=== PATIENT | female | born 1995 | race Caucasian/White ===

== ENCOUNTER 2017-06-27 10:29 | Emergency (ER) | payer OTHER ==
[2017-06-27] MEDS ORDERED: SODIUM CHLORIDE 0.9% 1,000 ML IV STA (11:12)
--- NOTE | 2017-06-27 11:14 | ED ---
General Adult HPI - General Chief complaint: Abdominal Pain Stated complaint: lower right abdominal pain Time Seen by Provider: 06/27/17 11:09 Source: patient, RN notes reviewed Mode of arrival: ambulatory Limitations: no limitations - History of Present Illness Initial comments: Patient's a 22-year-old female who presents emergency room today with chief complaint of right lower quadrant pain that began approximately 2 and half hours ago. Patient does admit to a sharp type pain located right lower quadrant. Currently rates a 4/10. Patient does make to some symptoms of nausea vomiting occurred earlier. States nausea has improved. His pain seems to wrap around to the back. Patient denies any other complaints or symptoms. Patient states does not want any pain medication at this time. Patient denies any recent fever, chills, shortness of breath, chest pain, numbness or tingling , dysuria or hematuria, constipation or diarrhea, headaches or visual changes, or any other complaints. - Related Data Home Medications Medication Instructions Recorded Confirmed Acetaminophen [Tylenol 8 Hour] 650 mg PO Q8H PRN 06/27/17 06/27/17 Allergies Allergy/AdvReac Type Severity Reaction Status Date / Time latex Allergy Intermediate Rash/Hives Verified 06/27/17 10:52 Review of Systems ROS Statement: Those systems with pertinent positive or pertinent negative responses have been documented in the HPI. ROS Other: All systems not noted in ROS Statement are negative. Past Medical History Past Medical History: No Reported History History of Any Multi-Drug Resistant Organisms: None Reported Past Surgical History: No Surgical Hx Reported Additional Past Surgical History / Comment(s): biopsies Past Anesthesia/Blood Transfusion Reactions: No Reported Reaction Past Psychological History: No Psychological Hx Reported Smoking Status: Current every day smoker Past Alcohol Use History: None Reported Past Drug Use History: None Reported - Past Family History Father Family Medical History: Chest Pain / Angina, Coronary Artery Disease (CAD), Myocardial Infarction ([place]) Brother(s) Family Medical History: Hypertension Additional Family Medical History / Comment(s): chron's General Exam - General Exam Comments Initial Comments: General: The patient is awake and alert, in no distress, and does not appear acutely ill. Eye: Pupils are equal, round and reactive to light, extra-ocular movements are intact. No nystagmus. There is normal conjunctiva bilaterally. No signs of icterus. Ears, nose, mouth and throat: There are moist mucous membranes and no oral lesions. Neck: The neck is supple, there is no tenderness or JVD. Cardiovascular: There is a regular rate and rhythm. No murmur, rub or gallop is appreciated. Respiratory: Lungs are clear to auscultation, respirations are non-labored, breath sounds are equal. No wheezes, stridor, rales, or rhonchi. Gastrointestinal: Normal appearance abdomen. Normal bowel sounds. Abdomen soft on palpation per patient does have tenderness right lower quadrant. No rebound tenderness. No guarding. No CVA tenderness. Musculoskeletal: Normal ROM, no tenderness. Strength 5/5. Sensation intact. Pulses equal bilaterally 2+. Neurological: A&O x 3. CN II-XII intact, There are no obvious motor or sensory deficits. Coordination appears grossly intact. Speech is normal. Skin: Skin is warm and dry and no rashes or lesions are noted. Psychiatric: Cooperative, appropriate mood & affect, normal judgment. Limitations: no limitations Course Vital Signs 06/27/17 06/27/17 10:44 12:40 Temperature 98.8 F Pulse Rate 80 83 Respiratory 18 16 Rate Blood Pressure 112/60 122/63 O2 Sat by Pulse 100 99 Oximetry Medical Decision Making - Medical Decision Making Case discussed in detail with attending physician Dr. Goodrich. Patient reexamined at this time shows no signs of distress resting comfortably. Patient' s CT reviewed and shows no evidence of appendicitis. Does show a right renal stone 4 mm. Results were discussed with patient. At this time she is pain free. Denies any symptoms. Was discussed about the possibility of a passed stone as well as 13 red cells in her urine. She does admit to family history of kidney stones well. She is advised faulted family doctor. Return here to the emergency room for any symptoms return or increase worsen. She states understanding and is in agreement. - Lab Data Result diagrams: 06/27/17 11:25 06/27/17 11:25 Lab Results 06/27/17 06/27/17 06/27/17 Range/Units 11:25 11:25 11:25 WBC 6.0 (3.8-10.6) k/uL RBC 4.53 (3.80-5.40) m/uL Hgb 14.1 (11.4-16.0) gm/dL Hct 42.3 (34.0-46.0) % MCV 93.5 (80.0-100.0) fL MCH 31.1 (25.0-35.0) pg MCHC 33.3 (31.0-37.0) g/dL RDW 14.0 (11.5-15.5) % Plt Count 164 (150-450) k/uL Neutrophils % 80 % Lymphocytes % 15 % Monocytes % 3 % Eosinophils % 1 % Basophils % 0 % Neutrophils # 4.8 (1.3-7.7) k/uL Lymphocytes # 0.9 L (1.0-4.8) k/uL Monocytes # 0.2 (0-1.0) k/uL Eosinophils # 0.1 (0-0.7) k/uL Basophils # 0.0 (0-0.2) k/uL Sodium 141 (137-145) mmol/L Potassium 4.3 (3.5-5.1) mmol/L Chloride 108 H (98-107) mmol/L Carbon Dioxide 24 (22-30) mmol/L Anion Gap 9 mmol/L BUN 10 (7-17) mg/dL Creatinine 0.93 (0.52-1.04) mg/dL Est GFR (MDRD) Af Amer >60 (>60 ml/min/1.73 sqM) Est GFR (MDRD) Non-Af >60 (>60 ml/min/1.73 sqM) Glucose 91 (74-99) mg/dL Calcium 9.6 (8.4-10.2) mg/dL Total Bilirubin 0.3 (0.2-1.3) mg/dL AST 17 (14-36) U/L ALT 25 (9-52) U/L Alkaline Phosphatase 61 (38-126) U/L Total Protein 6.9 (6.3-8.2) g/dL Albumin 4.4 (3.5-5.0) g/dL Amylase 32 (30-110) U/L Lipase 52 (23-300) U/L Urine Color Yellow Urine Appearance Cloudy H (Clear) Urine pH 7.0 (5.0-8.0) Ur Specific [place] 1.019 (1.001-1.035) Urine Protein Trace H (Negative) Urine Glucose (UA) Negative (Negative) Urine Ketones Negative (Negative) Urine Blood Trace H (Negative) Urine Nitrite Negative (Negative) Urine Bilirubin Negative (Negative) Urine Urobilinogen <2.0 (<2.0) mg/dL Ur Leukocyte Esterase Negative (Negative) Urine RBC 13 H (0-5) /hpf Urine WBC <1 (0-5) /hpf Ur Squamous Epith Cells 2 (0-4) /hpf Urine Mucus Many H (None) /hpf Urine HCG, Qual (Not Detectd) 06/27/17 Range/Units 11:25 WBC (3.8-10.6) k/uL RBC (3.80-5.40) m/uL Hgb (11.4-16.0) gm/dL Hct (34.0-46.0) % MCV (80.0-100.0) fL MCH (25.0-35.0) pg MCHC (31.0-37.0) g/dL RDW (11.5-15.5) % Plt Count (150-450) k/uL Neutrophils % % Lymphocytes % % Monocytes % % Eosinophils % % Basophils % % Neutrophils # (1.3-7.7) k/uL Lymphocytes # (1.0-4.8) k/uL Monocytes # (0-1.0) k/uL Eosinophils # (0-0.7) k/uL Basophils # (0-0.2) k/uL Sodium (137-145) mmol/L Potassium (3.5-5.1) mmol/L Chloride (98-107) mmol/L Carbon Dioxide (22-30) mmol/L Anion Gap mmol/L BUN (7-17) mg/dL Creatinine (0.52-1.04) mg/dL Est GFR (MDRD) Af Amer (>60 ml/min/1.73 sqM) Est GFR (MDRD) Non-Af (>60 ml/min/1.73 sqM) Glucose (74-99) mg/dL Calcium (8.4-10.2) mg/dL Total Bilirubin (0.2-1.3) mg/dL AST (14-36) U/L ALT (9-52) U/L Alkaline Phosphatase (38-126) U/L Total Protein (6.3-8.2) g/dL Albumin (3.5-5.0) g/dL Amylase (30-110) U/L Lipase (23-300) U/L Urine Color Urine Appearance (Clear) Urine pH (5.0-8.0) Ur Specific [place] (1.001-1.035) Urine Protein (Negative) Urine Glucose (UA) (Negative) Urine Ketones (Negative) Urine Blood (Negative) Urine Nitrite (Negative) Urine Bilirubin (Negative) Urine Urobilinogen (<2.0) mg/dL Ur Leukocyte Esterase (Negative) Urine RBC (0-5) /hpf Urine WBC (0-5) /hpf Ur Squamous Epith Cells (0-4) /hpf Urine Mucus (None) /hpf Urine HCG, Qual Not Detected (Not Detectd) Disposition Clinical Impression: Abdominal pain Disposition: HOME SELF-CARE Instructions: Abdominal Pain (ED) Additional Instructions: Please use medication as discussed. Please follow-up with family doctor in the next 2 days of symptoms have not improved. Please return to emergency room if the symptoms increase or worsen or for any other concerns. Referrals: Ezio Duncan MD [Primary Care Provider] - 1-2 days Time of Disposition: 13:51
[2017-06-27 11:49] LABS: Basophils % (A) 0 %; CH 31.9; CHCM 34.2; Eosinophils # (A) 0.1 k/uL (0-0.7); Eosinophils % (A) 1 %; HCT 42.3 % (34.0-46.0); HDW 2.18; HGB 14.1 gm/dL (11.4-16.0); Luc # (Auto) 0.03; Luc % (Auto) 1; Lymphocytes # (A) 0.9 k/uL (1.0-4.8); Lymphocytes % (A) 15 %; MCH 31.1 pg (25.0-35.0); MCHC 33.3 g/dL (31.0-37.0); MCV 93.5 fL (80.0-100.0); Mean Platelet Volume 7.9; Monocytes # (A) 0.2 k/uL (0-1.0); Monocytes % (A) 3 %; Neutrophils # (A) 4.8 k/uL (1.3-7.7); Neutrophils % (A) 80 %; RBC 4.53 m/uL (3.80-5.40); WBC (Perox) 5.73
[2017-06-27 11:57] LABS: Appearance,Urine Cloudy (Clear); Bilirubin,Urine Negative (Negative); Glucose,Urine (UA) Negative (Negative); Ketones,Urine Negative (Negative); Leukocyte Esterase,Urine Negative (Negative); Mucus,Urine Many /hpf; Nitrite,Urine Negative (Negative); Particle Count 7210; Protein,Urine Trace (Negative); RBC,Urine 13 /hpf (0-5); Specific Gravity,Urine 1.019 (1.001-1.035); Squamous Epithelial Cell,Urine 2 /hpf (0-4); UA Billing (MACRO vs. MICRO) MICRO; Urobilinogen,Urine <2.0 mg/dL (<2.0); WBC,Urine <1 /hpf (0-5)
[2017-06-27 12:20] LABS: ALT 25 U/L (9-52); AST 17 U/L (14-36); Alkaline Phosphatase 61 U/L (38-126); Amylase 32 U/L (30-110); Anion Gap 9 mmol/L; Blood Urea Nitrogen 10 mg/dL (7-17); Calcium 9.6 mg/dL (8.4-10.2); Carbon Dioxide 24 mmol/L (22-30); Chloride 108 mmol/L (98-107); Glucose 91 mg/dL (74-99); Non-African American GFR(MDRD) >60 (>60 ml/min/1.73 sqM); Potassium 4.3 mmol/L (3.5-5.1); Sodium 141 mmol/L (137-145); Total Bilirubin 0.3 mg/dL (0.2-1.3); Total Protein 6.9 g/dL (6.3-8.2)
--- NOTE | 2017-06-27 13:28 | CT ---
EXAMINATION TYPE: CT abdomen pelvis wo con DATE OF EXAM: 06/27/2017 COMPARISON: NONE HISTORY: 22-year-old female with Right sided pain radiates front to back CT DLP: 336.8 mGycm. Automated exposure control for dose reduction was used. TECHNIQUE: Contiguous axial scanning of the abdomen and pelvis without IV contrast. Coronal and sagit la reconstructions performed. FINDINGS: Heart is normal size without pericardial effusion. Lung bases clear without pleural effusion. Noncontrast appearance of the liver, gallbladder, adrenal glands, right kidney, and pancreas show no gross abnormality. There is a 4 mm nonobstructive calculus in the left kidney. There is some limitation in the exam due to lack of contrast and limited intra-abdominal fat. No dilated small bowel, free fluid, or free air. Scattered nonenlarged mesenteric lymph nodes are pre sent. Portions of a normal air-filled appendix are seen. Scattered mild to moderate stool in the right hemicolon. No pericolonic inflammatory change seen. Bladder is nondistended. Uterus and both ovaries are visualized. Trace cul-de-sac free fluid likely p hysiologic. Bones: No osseous destructive process. IMPRESSION: 1. Decrease sensitivity due to lack of contrast and paucity of intra-abdominal fat. 2. Segments of a normal air-filled appendix are visualized. 3. A 4 mm nonobstructive right renal calculus. 4. Trace cul-de-sac free fluid likely physiologic.
[2017-06-27 14:23] VITALS: BP 106/57; PULSE 72; RESP 18; TEMP 98.2
== END 2017-06-27 14:18 | disposition home or self-care (01) ==
LOC: EC 10:29
DX: R10.31 Right lower quadrant pain (principal); N20.0 Calculus of kidney; F17.200 Nicotine dependence, unspecified, uncomplicated; Z91.040 Latex allergy status
CPT/HCPCS: 36415; 74176; 80053; 81001; 81025; 82150; 83690; 85025; 96360; 99284

== ENCOUNTER → 2017-07-04 | Outpatient (CLI) | payer OTHER ==
--- NOTE | 2017-07-04 09:27 | US ---
EXAMINATION TYPE: US pelvis complete transvag DATE OF EXAM: 07/04/2017 COMPARISON: NONE CLINICAL HISTORY: Abd Pain R10.9. TECHNIQUE: Transvaginal (TV) and Transabdominal (TA) Date of LMP: 06/16/2017 EXAM MEASUREMENTS: Uterus: 8.6 x 4.4 x 4.5 cm Endometrial Stripe: 1.0 cm Right Ovary: 4.1 x 1.6 x 1.9 cm Left Ovary: 3.4 x 1.6 x 1.8 cm 1. Uterus: Anteverted Few echogenic foci visualized within the myometrium adjacent to the endometr ium 2. Endometrium: wnl 3. Right Ovary: wnl 4. Left Ovary: wnl 5. Bilateral Adnexa: wnl 6. Posterior cul-de-sac: wnl IMPRESSION: Nonspecific punctate calcifications in the myometrium.
--- NOTE | 2017-07-04 09:29 | US ---
EXAMINATION TYPE: US abdomen complete DATE OF EXAM: 07/04/2017 COMPARISON: CT 2017 CLINICAL HISTORY: Abd Pain R10.9. EXAM MEASUREMENTS: Liver Length: 14.4 cm Gallbladder Wall: 0.1 cm CBD: 0.2 cm Spleen: 11.6 cm Right Kidney: 10.8 x 4.7 x 4.5 cm Left Kidney: 10.2 x 4.3 x 4.9 cm Pancreas: Obscured by bowel gas, visualized portions appear wnl Liver: wnl Gallbladder: wnl Evidence for sonographic Dash's sign: No CBD: wnl Spleen: wnl Right Kidney: No hydronephrosis or masses seen Left Kidney: No hydronephrosis or masses seen Upper IVC: wnl Abd Aorta: wnl The liver is homogenous. The intrahepatic portion of the IVC and proximal abdominal aorta are within normal limits. There is no evidence of cholelithiasis. Common bile duct is unremarkable. The visu alized portions of the pancreas are homogenous. The spleen is unremarkable. Kidneys are symmetric a nd free of hydronephrosis. No renal lesions are seen. IMPRESSION: No acute process.
== END | disposition home or self-care (01) ==
LOC: RADUSWWP 08:37
PROVIDERS: ATTEND Pediatrics
DX: R93.8 Abnormal findings on diagnostic imaging of other specified body structures (principal); R10.9 Unspecified abdominal pain
CPT/HCPCS: 76700; 76830; 76856

== ENCOUNTER → 2017-07-21 | Outpatient (CLI) | payer OTHER ==
--- NOTE | 2017-07-21 16:31 | CT ---
EXAMINATION TYPE: CT pelvis w con DATE OF EXAM: 07/21/2017 COMPARISON: Pelvic ultrasound dated 07/04/[address] abdomen pelvis dated 06/27/2017 HISTORY: Lower right pelvic pain. Abnormal US CT DLP: 403.7 mGycm Automated exposure control for dose reduction was used. CONTRAST: Performed with IV Contrast, patient injected with 100 mL of Omnipaque 300. FINDINGS: There are no calcifications identified on CT as previously suggested on the prior ultrasound. These f oci that are hyperdense on the prior pelvic ultrasound are located within the junctional zone, theref ore this finding could relate to adenomyosis. Junctional zone is ill-defined on CT and cannot be full y evaluated. Pelvic MRI is better suited to evaluate this abnormality. The uterus overall enhances so mewhat heterogenous the mid endometrial thickness appearing within normal limits measuring approximat anup 7 mm. Follicular changes are seen of the ovaries bilaterally. Scant amount of free fluid is seen within the dependent right posterior cul-de-sac. No local adenopathy is identified. Bowel is unremarkable without dilation. Visualized portions of the abdominal aorta are of normal cour se and caliber. Urinary bladder is unremarkable. Visualized lower pole of the right kidney is also wi thin normal limits. Osseous structures appear intact. IMPRESSION: 1. HETEROGENEOUSLY ENHANCING UTERINE MYOMETRIUM AND JUNCTIONAL ZONE. NO MYOMETRIAL CALCIFICATIONS WERE PREVIOUSLY QUESTIONED ON PRIOR ULTRASOUND. THE PRIOR SONOGRAPHIC FINDING IS LOCATED WITHIN THE J UNCTIONAL ZONE AND THEREFORE FINDINGS MAY RELATE TO ADENOMYOSIS. JUNCTIONAL ZONE IS POORLY EVALUATED ON CT AND PELVIC MR IS BETTER SUITED FOR DIAGNOSIS OF ADENOMYOSIS. THEREFORE PELVIC MR WITH AND WITHO UT CONTRAST COULD BE PERFORMED IF CLINICALLY INDICATED. 2. NO EVIDENCE OF ADENOPATHY. 3. SCANT AMOUNT OF FREE PELVIC FLUID, LIKELY PHYSIOLOGIC IN NATURE.
== END | disposition home or self-care (01) ==
LOC: RADCTMAIN 15:42
PROVIDERS: ATTEND Pediatrics
DX: N80.0 Endometriosis of uterus (principal); R93.8 Abnormal findings on diagnostic imaging of other specified body structures
CPT/HCPCS: 72193; Q9967

== ENCOUNTER 2017-10-17 18:45 | Emergency (ER) | payer OTHER ==
[2017-10-17] MEDS ORDERED: METOCLOPRAMIDE 5 MG/ML 2 ML VIAL IVP STA (20:58)
[2017-10-17] MEDS ORDERED: SODIUM CHLORIDE 0.9% 1,000 ML IV ONE (20:58)
--- NOTE | 2017-10-17 21:05 | ED ---
Female Urogenital HPI - General Chief complaint: Urogenital Stated complaint: and bleeding Time Seen by Provider: 10/17/17 20:48 Source: patient Mode of arrival: ambulatory - History of Present Illness Initial comments: This is a 22-year-old female who presents with vaginal bleeding and abdominal cramping which began approximately 7 hours ago. The patient is and 9 weeks . She states the cramping is located in the lower abdomen and pelvic region. She reports passing a quarter-sized clot and has filled at least 5 pads since the onset of symptoms. She admits feeling nauseous today and throughout the entire . The patient has a history of adenomyosis. She denies vomiting, diarrhea or constipation. Last Menstrual Period: 08/20/17 - Related Data Home Medications Medication Instructions Recorded Confirmed Pnv,Calcium 72/Iron/Folic Acid 1 tab PO DAILY 10/17/17 10/17/17 [ Plus Tablet] Allergies Allergy/AdvReac Type Severity Reaction Status Date / Time latex Allergy Intermediate Rash/Hives Verified 10/17/17 21:16 Review of Systems ROS Statement: Those systems with pertinent positive or pertinent negative responses have been documented in the HPI. ROS Other: All systems not noted in ROS Statement are negative. Past Medical History Past Medical History: No Reported History Additional Past Medical History / Comment(s): adenomysosis History of Any Multi-Drug Resistant Organisms: None Reported Past Surgical History: No Surgical Hx Reported Additional Past Surgical History / Comment(s): biopsies Past Anesthesia/Blood Transfusion Reactions: No Reported Reaction Past Psychological History: No Psychological Hx Reported Smoking Status: Former smoker Past Alcohol Use History: None Reported Past Drug Use History: None Reported - Past Family History Father Family Medical History: Chest Pain / Angina, Coronary Artery Disease (CAD), Myocardial Infarction ([place]) Brother(s) Family Medical History: Hypertension Additional Family Medical History / Comment(s): chron's General Exam General appearance: alert, in no apparent distress Head exam: Present: atraumatic, normocephalic, normal inspection Respiratory exam: Present: normal lung sounds bilaterally. Absent: respiratory distress, wheezes, rales, rhonchi, stridor Cardiovascular Exam: Present: regular rate, normal rhythm, normal heart sounds. Absent: systolic murmur, diastolic murmur, rubs, gallop, clicks GI/Abdominal exam: Present: soft, normal bowel sounds. Absent: distended, tenderness, guarding, rebound, rigid External exam: Present: normal external exam, other ( exam performed by Nuvia Boo) Speculum exam: Present: vaginal bleeding, other (Cervix is closed) Back exam: Present: normal inspection. Absent: tenderness, CVA tenderness (R), CVA tenderness (L) Neurological exam: Present: alert, oriented X3, CN II-XII intact Psychiatric exam: Present: normal affect, normal mood Skin exam: Present: warm, dry, intact, normal color. Absent: rash Course Vital Signs 10/17/17 19:32 Temperature 99.0 F Pulse Rate 106 H Respiratory 16 Rate Blood Pressure 125/57 O2 Sat by Pulse 99 Oximetry Medical Decision Making - Medical Decision Making 22-year-old female presented emergency department for vaginal bleeding early . Patient is O+ blood type she does not need broke him at this time. Patient is A0. Patient ultrasound shows demise though patient states may not be correct. I did explain this that the radiologist did read as a field demise patient does have mild amount of bleeding though cervix is closed. Patient denies that she is to have a repeat ultrasound and return for any worsening symptoms. - Lab Data Result diagrams: 10/17/17 21:10 10/17/17 21:10 Lab Results 10/17/17 10/17/17 10/17/17 Range/Units 21:10 21:10 21:10 WBC 12.1 H (3.8-10.6) k/uL RBC 4.01 (3.80-5.40) m/uL Hgb 12.2 (11.4-16.0) gm/dL Hct 35.8 (34.0-46.0) % MCV 89.1 (80.0-100.0) fL MCH 30.5 (25.0-35.0) pg MCHC 34.2 (31.0-37.0) g/dL RDW 14.1 (11.5-15.5) % Plt Count 205 (150-450) k/uL Neutrophils % 80 % Lymphocytes % 15 % Monocytes % 3 % Eosinophils % 1 % Basophils % 0 % Neutrophils # 9.7 H (1.3-7.7) k/uL Lymphocytes # 1.9 (1.0-4.8) k/uL Monocytes # 0.4 (0-1.0) k/uL Eosinophils # 0.1 (0-0.7) k/uL Basophils # 0.0 (0-0.2) k/uL Sodium 139 (137-145) mmol/L Potassium 4.1 (3.5-5.1) mmol/L Chloride 105 (98-107) mmol/L Carbon Dioxide 22 (22-30) mmol/L Anion Gap 12 mmol/L BUN 8 (7-17) mg/dL Creatinine 0.70 (0.52-1.04) mg/dL Est GFR (MDRD) Af Amer >60 (>60 ml/min/1.73 sqM) Est GFR (MDRD) Non-Af >60 (>60 ml/min/1.73 sqM) Glucose 103 H (74-99) mg/dL Calcium 9.2 (8.4-10.2) mg/dL Total Bilirubin 0.2 (0.2-1.3) mg/dL AST 15 (14-36) U/L ALT 21 (9-52) U/L Alkaline Phosphatase 59 (38-126) U/L Total Protein 6.7 (6.3-8.2) g/dL Albumin 4.1 (3.5-5.0) g/dL HCG, Quant 00601.7 mIU/mL Urine Color Urine Appearance (Clear) Urine pH (5.0-8.0) Ur Specific [place] (1.001-1.035) Urine Protein (Negative) Urine Glucose (UA) (Negative) Urine Ketones (Negative) Urine Blood (Negative) Urine Nitrite (Negative) Urine Bilirubin (Negative) Urine Urobilinogen (<2.0) mg/dL Ur Leukocyte Esterase (Negative) Urine RBC (0-5) /hpf Urine WBC (0-5) /hpf Ur Squamous Epith Cells (0-4) /hpf Urine Bacteria (None) /hpf Urine Mucus (None) /hpf Blood Type O Positive Blood Type Recheck No 10/17/17 Range/Units 21:10 WBC (3.8-10.6) k/uL RBC (3.80-5.40) m/uL Hgb (11.4-16.0) gm/dL Hct (34.0-46.0) % MCV (80.0-100.0) fL MCH (25.0-35.0) pg MCHC (31.0-37.0) g/dL RDW (11.5-15.5) % Plt Count (150-450) k/uL Neutrophils % % Lymphocytes % % Monocytes % % Eosinophils % % Basophils % % Neutrophils # (1.3-7.7) k/uL Lymphocytes # (1.0-4.8) k/uL Monocytes # (0-1.0) k/uL Eosinophils # (0-0.7) k/uL Basophils # (0-0.2) k/uL Sodium (137-145) mmol/L Potassium (3.5-5.1) mmol/L Chloride (98-107) mmol/L Carbon Dioxide (22-30) mmol/L Anion Gap mmol/L BUN (7-17) mg/dL Creatinine (0.52-1.04) mg/dL Est GFR (MDRD) Af Amer (>60 ml/min/1.73 sqM) Est GFR (MDRD) Non-Af (>60 ml/min/1.73 sqM) Glucose (74-99) mg/dL Calcium (8.4-10.2) mg/dL Total Bilirubin (0.2-1.3) mg/dL AST (14-36) U/L ALT (9-52) U/L Alkaline Phosphatase (38-126) U/L Total Protein (6.3-8.2) g/dL Albumin (3.5-5.0) g/dL HCG, Quant mIU/mL Urine Color Light Yellow Urine Appearance Clear (Clear) Urine pH 6.0 (5.0-8.0) Ur Specific [place] 1.005 (1.001-1.035) Urine Protein Negative (Negative) Urine Glucose (UA) Negative (Negative) Urine Ketones Negative (Negative) Urine Blood Moderate H (Negative) Urine Nitrite Negative (Negative) Urine Bilirubin Negative (Negative) Urine Urobilinogen <2.0 (<2.0) mg/dL Ur Leukocyte Esterase Negative (Negative) Urine RBC 12 H (0-5) /hpf Urine WBC <1 (0-5) /hpf Ur Squamous Epith Cells <1 (0-4) /hpf Urine Bacteria Rare H (None) /hpf Urine Mucus Rare H (None) /hpf Blood Type Blood Type Recheck Disposition Clinical Impression: Threatened miscarriage Disposition: HOME SELF-CARE Condition: Stable Instructions: Threatened Miscarriage (ED) Additional Instructions: Please contact your SERVICE RIG OPERATOR for repeat ultrasound and lab work.Please return to the Emergency Department if symptoms worsen or any other concerns. Referrals: Ezio Duncan MD [Primary Care Provider] - 1-2 days Time of Disposition: 23:14
[2017-10-17 21:26] LABS: Basophils % (A) 0 %; Eosinophils # (A) 0.1 k/uL (0-0.7); Eosinophils % (A) 1 %; HCT 35.8 % (34.0-46.0); HGB 12.2 gm/dL (11.4-16.0); Lymphocytes # (A) 1.9 k/uL (1.0-4.8); Lymphocytes % (A) 15 %; MCH 30.5 pg (25.0-35.0); MCHC 34.2 g/dL (31.0-37.0); MCV 89.1 fL (80.0-100.0); Mean Platelet Volume 6.9; Monocytes # (A) 0.4 k/uL (0-1.0); Monocytes % (A) 3 %; Neutrophils # (A) 9.7 k/uL (1.3-7.7); Neutrophils % (A) 80 %; Platelet Count 205 k/uL (150-450); RBC 4.01 m/uL (3.80-5.40); RDW 14.1 % (11.5-15.5); WBC 12.1 k/uL (3.8-10.6)
[2017-10-17 21:36] LABS: ALT 21 U/L (9-52); AST 15 U/L (14-36); Albumin 4.1 g/dL (3.5-5.0); Alkaline Phosphatase 59 U/L (38-126); Anion Gap 12 mmol/L; Appearance,Urine Clear (Clear); Bacteria,Urine Rare /hpf; Bilirubin,Urine Negative (Negative); Blood Urea Nitrogen 8 mg/dL (7-17); Blood,Urine Moderate (Negative); Calcium 9.2 mg/dL (8.4-10.2); Carbon Dioxide 22 mmol/L (22-30); Chloride 105 mmol/L (98-107); Color,Urine Light Yellow; Glucose 103 mg/dL (74-99); Glucose,Urine (UA) Negative (Negative); Ketones,Urine Negative (Negative); Leukocyte Esterase,Urine Negative (Negative); Mucus,Urine Rare /hpf; Nitrite,Urine Negative (Negative); Potassium 4.1 mmol/L (3.5-5.1); Protein,Urine Negative (Negative); RBC,Urine 12 /hpf (0-5); Sodium 139 mmol/L (137-145); Specific Gravity,Urine 1.005 (1.001-1.035); Squamous Epithelial Cell,Urine <1 /hpf (0-4); Total Bilirubin 0.2 mg/dL (0.2-1.3); Total Protein 6.7 g/dL (6.3-8.2); Urobilinogen,Urine <2.0 mg/dL (<2.0); WBC,Urine <1 /hpf (0-5)
[2017-10-17 21:52] LABS: HCG,Quantitative Serum 12671.7 mIU/mL
--- NOTE | 2017-10-17 22:26 | US ---
EXAMINATION TYPE: US OB <=14 wks transvag DATE OF EXAM: 10/17/2017 COMPARISON: NONE CLINICAL HISTORY: Pain. EC patient with pelvic pain, cramping and vaginal bleeding tonight; EXAM PERFORMED: Transvaginal (TV) and Transabdominal (TA) EXAM MEASUREMENTS: GESTATIONAL AGE / DATING Physician Established: Not yet established Dates by LMP: ( 9 weeks/3 days) EDC: 05/19/2018 Dates by First Scan: No previous; this is first scan. Dates by Current Scan for: (6 weeks/2 days) EDC: 06/08/2018 MATERNAL ANATOMY Uterus: 11.2 x 7.1 x 5.7cm Right Ovary: 3.1 x 2.4 x 1.5cm by TV US Left Ovary: 4.2 x 2.0 x 2.9cm by TV US Post CDS / Adnexa: wnl Presence of free fluid: no Presence of corpus luteal cyst: oval solid hypoechoic area in left ovary = 1.5 x 1.3 x 1.1 with perip heral ring of color flow may represent corpus luteum of Presence of subchorionic bleed: yes, complex hypoechoic area is noted lower subchorion and size = 2.5 x 2.5 x 1.3cm. GESTATION / SURVEY CRL: 0.5cm (6 weeks/2 days) MSD: 2.2 (6 weeks/6 days); hyperechoic focus is noted mid gestational sac wall on image #[id number] and # [id number]. Yolk Sac (normal less than 6mm): not seen Heart Rate: none detected by M Mode, color flow, or PW Doppler Date of LMP: approximately 08/12/2017 Beta HcG (if available): 12,671.7 Single intrauterine gestational sac, and pole is seen, but no detectable heart rate is observed . Presence of subchorionic bleed is noted. IMPRESSION: The findings are consistent with demise at approximately 6 weeks gestation. There is a small briones bchorionic hemorrhage. Ultrasound visualization of the fetus was adequate and there was no cardiac pu lsation identified.
[2017-10-17 23:48] VITALS: BP 128/66; PULSE 91; RESP 18; TEMP 98
== END 2017-10-17 23:47 | disposition home or self-care (01) ==
LOC: EC 18:45
DX: O20.0 Threatened abortion (principal); Z87.891 Personal history of nicotine dependence; Z91.040 Latex allergy status; Z3A.09 9 weeks gestation of pregnancy; Z79.899 Other long term (current) drug therapy
CPT/HCPCS: 99284; 96374; 96361 ×3; 36415; 86900; 86901; 80053; 85025; 81001; 84702; 76801; 76817; J2765

== ENCOUNTER 2018-12-07 05:35 | Inpatient (IN) | payer OTHER ==
[2018-12-07] MEDS ORDERED: METHYLERGONOVINE 0.2 MG/ML 1 ML AMP IM PRN (05:48)
[2018-12-07] MEDS ORDERED: OXYTOCIN 10 UNIT/ML 1 ML VIAL IM PRN (05:48)
[2018-12-07] MEDS ORDERED: OXYTOCIN 30 UNITS/500 ML NS 30 UNIT in SALINE 1 500ML.BAG IV SCH (05:48)
[2018-12-07] MEDS ORDERED: LIDOCAINE 0.5% (PF) 5 MG/ML (50 ML SDV) SQ PRN (05:48)
[2018-12-07] MEDS ORDERED: TERBUTALINE 1 MG/ML VIAL SQ PRN (05:48)
[2018-12-07] MEDS ORDERED: CARBOPROST TROMETHAMINE 250 MCG/ML 1 ML AMP IM PRN (05:48)
[2018-12-07] MEDS: LACTATED RINGERS 1,000 ML IV SCH ×2 (06:08→12:07)
--- NOTE | 2018-12-07 06:13 | P.HPOB ---
History of Present Illness H&P Date: 12/07/18 Chief Complaint: Patient is requesting induction of labor. This patient is a pleasant 23-year-old 4 para 2 female estimated date of confinement 12/11/2018 estimated gestational age 39-3/7 weeks who presents to labor and delivery for requested induction of labor. Patient's care has been uncomplicated. Patient is uncomfortable requesting delivery at this time. Review of Systems Genitourinary: Reports Menstruation: Reports amenorrhea Past Medical History Past Medical History: No Reported History History of Any Multi-Drug Resistant Organisms: None Reported Past Surgical History: No Surgical Hx Reported Past Anesthesia/Blood Transfusion Reactions: No Reported Reaction Past Psychological History: No Psychological Hx Reported Smoking Status: Former smoker Past Alcohol Use History: None Reported Past Drug Use History: None Reported - Past Family History Father Family Medical History: Chest Pain / Angina, Coronary Artery Disease (CAD), Myocardial Infarction (DC) Brother(s) Family Medical History: Hypertension Additional Family Medical History / Comment(s): chron's Medications and Allergies Home Medications Medication Instructions Recorded Confirmed Type Pnv,Calcium 72/Iron/Folic Acid 1 tab PO DAILY 10/17/17 12/07/18 History [ Plus Tablet] Allergies Allergy/AdvReac Type Severity Reaction Status Date / Time latex Allergy Intermediate Rash/Hives Verified 12/07/18 05:47 Exam Intake and Output 12/06/18 12/06/18 12/07/18 14:59 22:59 06:59 Other: Weight 86.9 kg - OBG Physical Exam Abdomen: bowel sounds normal, no diffuse tenderness, no bruit present, no guarding noted, no hepatomegaly, no splenomegaly, no mass Vulva: both: normal Vagina: normal moisture, no discharge Cervix: no lesion (Cervix is 2 cm dilated 50% effaced -2 station.), no discharge Uterus: enlarged (Fundal height is 38 cm) Results blood work shows she is O positive, rubella immune, RPR is nonreactive, hepatitis B is negative, HIV is nonreactive, Glucola was abnormal with a normal three-hour gtt., group B strep was negative, ultrasounds have shown normal growth and anatomy. Assessment and Plan Assessment: This is a pleasant 23-year-old 4 para 2 female 39-3/7 weeks gestation admitted to labor and delivery for requested elective induction of labor. Plan is induction of labor and anticipate vaginal delivery. (1) 39 weeks gestation of Current Visit: Yes Status: Acute Code(s): Z3A.39 - 39 WEEKS GESTATION OF SNOMED Code(s): 16871159 (2) Elective induction of labor planned Current Visit: No Status: Acute Code(s): DBO0258 - SNOMED Code(s): 127113408
[2018-12-07 06:20] VITALS: BMI 30.9
[2018-12-07 06:23] LABS: Basophils % (A) 0 %; Eosinophils # (A) 0.1 k/uL (0-0.7); Eosinophils % (A) 1 %; HCT 36.8 % (34.0-46.0); HGB 12.2 gm/dL (11.4-16.0); Lymphocytes # (A) 2.8 k/uL (1.0-4.8); Lymphocytes % (A) 20 %; MCH 31.1 pg (25.0-35.0); MCHC 33.2 g/dL (31.0-37.0); MCV 93.7 fL (80.0-100.0); Mean Platelet Volume 6.8; Monocytes # (A) 0.5 k/uL (0-1.0); Monocytes % (A) 4 %; Neutrophils # (A) 10.2 k/uL (1.3-7.7); Neutrophils % (A) 74 %; Platelet Count 259 k/uL (150-450); RBC 3.93 m/uL (3.80-5.40); WBC 13.7 k/uL (3.8-10.6)
[2018-12-07] MEDS ORDERED: BUTORPHANOL 1 MG/ML 1 ML VIAL IV PRN (14:28)
[2018-12-07] MEDS ORDERED: SIMETHICONE 80 MG CHEWABLE PO PRN (17:10)
[2018-12-07] MEDS ORDERED: LANOLIN CREAM 5 GM TUBE TOPICAL PRN (17:10)
[2018-12-07] MEDS ORDERED: diphenhydrAMINE 50 MG/ML 1 ML VIAL IVP PRN (17:10)
[2018-12-07] MEDS ORDERED: WITCH HAZEL 1 EACH MED..PAD TOPICAL PRN (17:10)
[2018-12-07] MEDS ORDERED: OXYTOCIN 20 UNITS/1000 ML NS 1,000 ML IV SCH (17:10)
[2018-12-07] MEDS ORDERED: diphenhydrAMINE 25 MG CAP PO PRN (17:10)
[2018-12-07] MEDS ORDERED: HYDROCORTISONE 2.5% RECTAL CREAM 30 GM TUBE RECTAL PRN (17:10)
[2018-12-07] MEDS ORDERED: BISACODYL 10 MG SUPP RECTAL PRN (17:10)
[2018-12-07] MEDS ORDERED: ACETAMINOPHEN TAB 325 MG TAB PO PRN (17:10)
[2018-12-07] MEDS ORDERED: ZOLPIDEM 5 MG TAB PO PRN (17:10)
[2018-12-07] MEDS ORDERED: BENZOCAINE/MENTHOL SPRAY 1 GM/SPRAY AEROSOL TOPICAL PRN (17:10)
--- NOTE | 2018-12-07 17:13 | P.PROBDLV ---
Vaginal Delivery Note - . Vaginal Delivery Note: Normal vaginal delivery viable female Apgars 8 and 9 delivery time is 1652 hrs. Please see dictated H&P for intimate details of this patient's admission. In brief summary this is a pleasant 23-year-old 4 para 2 female estimated gestational age 39-3/7 weeks is admitted for requested induction of labor. On admission patient is 2 cm dilated has artificial rupture membranes for clear fluid. heart tones are category 1. Patient's labor is induced with Pitocin per protocol. Patient progresses she does receive 1 dose of intrapartum Stadol for pain control. Patient quickly goes to complete and pushes the head to the perineum. Posterior perineum was supported and we have controlled delivery of 's head over the intact perineum. There is no evidence of a nuchal cord. I bulb suction the mouth and naris. With gentle downward traction we then deliver the anterior and posterior shoulder and rest this 's body. This is a vigorous viable female infant Apgars are 8 and 9 delivery time is 1652 hrs. After delivery of the the umbilical cord is allowed to quit pulsating then doubly clamped and cut. It appears to be trivascular. Placenta spontaneously delivered intact. Inspection of the perineum shows a first-degree posterior laceration was repaired with 3-0 Vicryl in the usual fashion. Excellent reapproximation is noted. All counts are correct 3. There are no complications. Estimated blood loss is 1 50 mL. Infant and mother stable delivery room.
[2018-12-07] MEDS: IBUPROFEN 600 MG TAB PO PRN (17:30)
[2018-12-07] MEDS: SENNOSIDES-DOCUSATE SODIUM 1 EACH TAB PO SCH ×2 (18:58→20:26)
--- NOTE | 2018-12-08 07:04 | P.PNOBGVD ---
Subjective - Subjective Patient reports: Reports appetite normal, Reports voiding normally, Reports pain well controlled, Reports ambulating normally : doing well Objective - Latest Vital Signs Latest vital signs: Vital Signs Temp Pulse Resp BP Pulse Ox 12/08/18 04:15 98.3 F 84 16 119/62 12/08/18 00:00 97.6 F 70 14 106/72 98 12/07/18 19:12 97.9 F 90 16 131/67 98 12/07/18 18:42 91 16 136/67 12/07/18 18:12 93 16 137/67 12/07/18 17:57 98.8 F 90 16 141/72 12/07/18 17:34 98.1 F 88 16 145/78 12/07/18 17:19 98.3 F 94 16 133/70 12/07/18 17:12 97.9 F 93 16 137/73 99 Intake and Output 12/07/18 12/08/18 12/08/18 22:59 06:59 14:59 Other: Voiding Method Toilet # Voids 1 1 - Exam Lungs: bilateral: normal Chest: Normal S1, Normal S2 Extremities: Present: normal Abdomen: Present: normal appearance, soft Uterus: Present: normal, firm Assessment and Plan Assessment: day #1. Patient is resting without complaints and wishes to go home. Vital signs are stable she's afebrile. Uterus is firm nontender and she is having normal lochia. My impression is that this is a normal course. Plan is to continue routine care discharge home later today. (1) 39 weeks gestation of Current Visit: Yes Status: Acute Code(s): Z3A.39 - 39 WEEKS GESTATION OF SNOMED Code(s): 71453841 (2) Elective induction of labor planned Current Visit: No Status: Acute Code(s): CKY5059 - SNOMED Code(s): 049377368
--- NOTE | 2018-12-08 07:08 | P.DS ---
Providers Date of admission: 12/07/18 05:35 Expected date of discharge: 12/08/18 Attending physician: Alberto Carrillo Primary care physician: Stated None - Discharge Diagnosis(es) (1) 39 weeks gestation of Current Visit: Yes Status: Acute (2) Elective induction of labor planned Current Visit: No Status: Acute Hospital Course: Please see dictated H&P for intimate details of this patient's admission. Brief summary this pleasant 23-year-old 4 para 2 female 39-1/2 weeks gestation admitted to labor and delivery for requested induction of labor. Patient is uncomplicated induction of labor and goes on have a vaginal delivery viable female infant. Please see dictated delivery note. day 1 patient without complaints she wishes to go home. Patient's felt stable for discharge home follow up with me in 6 weeks. Procedures: Induction of labor and normal vaginal delivery. Patient Condition at Discharge: Good Plan - Discharge Summary New Discharge Prescriptions: New Ibuprofen [Motrin] 600 mg PO Q6HR PRN #30 tab PRN Reason: Mild Pain Or Fever >= 100.5 No Action Pnv,Calcium 72/Iron/Folic Acid [ Plus Tablet] 1 tab PO DAILY Discharge Medication List Pnv,Calcium 72/Iron/Folic Acid [ Plus Tablet] 1 tab PO DAILY 10/17/17 [History] Ibuprofen [Motrin] 600 mg PO Q6HR PRN #30 tab 12/08/18 [Rx] Follow up Appointment(s)/Referral(s): Alberto Carrillo MD [STAFF PHYSICIAN] - 01/19/19 10:45 am Patient Instructions/Handouts: Vaginal Delivery (DC) Activity/Diet/Wound Care/Special Instructions: No intercourse or anything per vagina for 6 weeks. Please call if any fever, chills, excessive vaginal bleeding, and/or abdominal pain. Discharge Disposition: HOME SELF-CARE
[2018-12-08] MEDS: SENNOSIDES-DOCUSATE SODIUM 1 EACH TAB PO SCH (08:13)
[2018-12-08] MEDS: IBUPROFEN 600 MG TAB PO PRN (12:26)
[2018-12-08 17:45] VITALS: BP 133/75; PULSE 74; RESP 15; TEMP 97.5
== END 2018-12-08 17:47 | disposition home or self-care (01) | DRG 807 ==
LOC: 4FBP 05:35
PROVIDERS: ADMIT Obstetrics & Gynecology; ATTEND Obstetrics & Gynecology
PROC: 10E0XZZ Delivery of Products of Conception, External Approach (ICD-10-PCS; principal; 2018-12-07)
PROC: 0HQ9XZZ Repair Perineum Skin, External Approach (ICD-10-PCS; 2018-12-07)
PROC: 10907ZC Drainage of Amniotic Fluid, Therapeutic from Products of Conception, Via Natural or Artificial Opening (ICD-10-PCS; 2018-12-07)
PROC: 3E033VJ Introduction of Other Hormone into Peripheral Vein, Percutaneous Approach (ICD-10-PCS; 2018-12-07)
DX: O70.0 First degree perineal laceration during delivery (principal); Z37.0 Single live birth; Z3A.39 39 weeks gestation of pregnancy; Z79.899 Other long term (current) drug therapy; Z87.891 Personal history of nicotine dependence; Z91.040 Latex allergy status; Z82.49 Family history of ischemic heart disease and other diseases of the circulatory system
CPT/HCPCS: 85025; 86850; 86900; 86901